=== PATIENT | male | born 1985 | race African-American/Black ===

== ENCOUNTER 2016-08-12 16:04 | Emergency (ER) ==
[2016-08-12 16:37] VITALS: BP 149/97
[2016-08-12] MEDS ORDERED: SOLU-MEDROL IV ONE (17:09)
[2016-08-12] MEDS ORDERED: DUONEB (A & A) INH ONE (17:10)
--- NOTE | 2016-08-12 17:11 | PROVIDER DOCUMENTATION ---
HPI-Respiratory General - General Chief Complaint: Asthma Attack Stated Complaint: ASTHMA ATTACK Time Seen by Provider: 08/12/16 16:59 Source: patient Unable to obtain history due to:: urgency Allergies/Adverse Reactions: Patient Allergies Allergy/AdvReac Type Severity Reaction Status Date / Time No Known Allergies Allergy Verified 08/12/16 16:55 Home Medications: Home Medication List Medication Instructions Recorded Confirmed Last Taken Type Albuterol Sulfate [Proair Hfa] 8.5 gm IH Q4-6H PRN PRN #1 06/04/16 08/12/16 09:00 Rx [email or web address] Albuterol [Albuterol Neb] 1 applicator IH BID 08/12/16 08/12/16 08/11/16 23:00 History Methylprednisolone [Medrol Dosepak] 4 mg PO DIRECTED #1 package 08/12/16 Unknown Rx - History of Present Illness-Resp Nature of Presenting Problem: ASTHMA FOR 24 HOURS. HAS USED TREATMENTS AT HOME WITHOUT RELIEF. Severity in ED: reports: mild Onset/Duration: reports: 24 hours ago, other Timing: reports: still present Context: denies: recent foreign travel Exposure: reports: unknown cause Cough Quality/Degree: reports: no cough, mild Current Respiratory Medication Therapy: Initiated A/A nebulizer Modifying Factors: improves with: nothing Associated Symptoms: reports: denies symptoms Similar Symptoms Previously?: Yes (ASTHMA) Recently seen or treated by another doctor?: No Review of Systems - Adult - REVIEW OF SYSTEMS - ADULT Constitutional: reports: no symptoms reported Eyes: reports: no symptoms reported Ears, Nose, Mouth & Throat: reports: no symptoms reported Cardiovascular: reports: no symptoms reported Respiratory: reports: cough, wheezing Gastrointestinal: reports: no symptoms reported Genitourinary: reports: no symptoms reported Musculoskeletal: reports: no symptoms reported Integumentary: reports: no symptoms reported Neurological: reports: no symptoms reported Psychiatric: reports: no symptoms reported Endocrine: reports: no symptoms reported Hematologic/Lymphatic: reports: no symptoms reported Allergic/Immunologic: reports: no symptoms reported All Other Systems: Reviewed and Negative Past History - Adult - PAST MEDICAL HISTORY-ADULT Review of Records: reports: Nursing Assessment Review, Medications Reviewed Major Childhood Illnesses: reports: denies history, other (asthma) Cardiovascular: reports: denies history Respiratory: reports: asthma Gastrointestinal: reports: denies history Obstetrical/Gynecological: reports: denies history Genitourinary: reports: denies history Musculoskeletal: reports: denies history Neurological: reports: denies history Psychiatric: reports: denies history Endocrine/Immune: reports: denies history Other Conditions: reports: denies history - PRIOR SURGERIES/PROCEDURES Surgical/Procedure History: reports: hernia repair, orthopedic (extremity) - IMMUNIZATION STATUS Childhood Immunizations: See Nurse Assessment Flu Vaccine: See Nurse Assessment - FAMILY HISTORY Family History: reviewed, not pertinent Physical Exam-General - PHYSICAL EXAM-ADULT Initial Vital Signs Reviewed: Yes - CONSTITUTIONAL General Appearance: appears well, alert, mild distress - EYES Eyes: PERRL/EOMI - HEAD, EARS, NOSE, MOUTH & THROAT HENMT: normocephalic/atraumatic, moist mucous membranes, normal ENT inspection - NECK Neck: non-tender, full range of motion - RESPIRATORY Respiratory: chest non-tender, decreased breath sounds, wheezing. negative: lungs clear, respiratory distress, accessory muscle use, crackles, rales, rhonchi, stridor - CARDIOVASCULAR Cardiovascular: normal peripheral pulses - CHEST (BREASTS) Chest/Breast: deferred - LYMPHATIC Lymphatic: no adenopathy - MUSCULOSKELETAL Back Exam: normal inspection Extremity: normal range of motion - SKIN Integumentary: normal color, normal turgor, warm/dry - NEUROLOGIC Neurologic: grossly normal - PSYCHIATRIC Psych/Mental Status: normal mood/affect, normal thought content, normal thought process Progress - PLAN OF CARE/RESULTS Progress/Plan/Lab Results: Vital Signs Temp Pulse Resp BP Pulse Ox 08/12/16 17:32 78 20 08/12/16 16:34 97.9 F 78 20 149/97 95 No Known Allergies Allergy (Verified 08/12/16 16:55) Albuterol Sulfate [Proair Hfa] 8.5 gm IH Q4-6H PRN PRN #1 [email or web address] 06/04/16 Albuterol [Albuterol Neb] 1 applicator IH BID 08/12/16 Departure - Departure Time of Disposition Order: 18:15 DIAGNOSIS: Asthma exacerbation attacks Qualifiers: Asthma severity: mild intermittent Qualified Code(s): J45.21 - Mild intermittent asthma with (acute) exacerbation Disposition: HOME 01 Certified Medical Emergency: Emergent Condition: Stable Additional Instructions: TAKE PREDNISONE WITH FOOD. USE YOUR NEBS DISCUSSED. FOLLOW UP WITH YOUR PCP FOR FURTHER EVALUATION AND MANAGEMENT. RETURN TO ER FOR ANY WORSENING SYMPTOMS. ED Follow Up Instructions: You have been treated by a care provider in the Emergency Department. These instructions are being provided to you so you can have an understanding of how to care for yourself upon discharge. Upon discharge from the Emergency Department, you are responsible for making arrangements for follow-up care by a physician of your choice. Take all prescribed medications as directed. Return to the Emergency Department immediately for any new or worsening symptoms. You may call the Physician Referral phone number at [phone] to obtain a list of Physicians who are taking new patients. Prescriptions: Methylprednisolone [Medrol Dosepak] 4 mg PO DIRECTED #1 package
[2016-08-12] MEDS ORDERED: DUONEB (A & A) ONE (17:19)
[2016-08-12] MEDS ORDERED: SOLU-MEDROL IM ONE (17:47)
== END 2016-08-12 18:32 | disposition home or self-care (01) ==
LOC: ED 16:04
DX: J45.21 Mild intermittent asthma with (acute) exacerbation (principal); R05 Cough; R06.2 Wheezing; Z79.899 Other long term (current) drug therapy
CPT/HCPCS: 94640; J2930